=== PATIENT | male | born 1980 | race Two or more races ===

== ENCOUNTER 2018-12-02 15:20 | Emergency (ER) | payer SELFPAY ==
[~2018-12-02] VITALS: Ht 160 cm; Wt 68.0 kg
[2018-12-02] MEDS ORDERED: HYDROCODONE/ACETAMINOPHEN 10/325MG TABLET PO ONE (17:00)
[2018-12-02] MEDS ORDERED: PIPERACILLIN/TAZOBACTAM 3.375GM/50ML PREMIX IV ONE (17:15)
[2018-12-02] MEDS ORDERED: PIPERACILLIN/TAZOBACTAM 3.375 G in DEXT 5% WATER 100 ML IV NR (18:00)
[2018-12-02] MEDS ORDERED: TRANEXAMIC ACID 1,000 MG/10 ML TP ONE (18:15)
[2018-12-02] MEDS ORDERED: TRANEXAMIC ACID 1,000 MG/10 ML TP NR (18:15)
[2018-12-02 19:40] VITALS: BP 122/80
== END 2018-12-02 19:44 | disposition home or self-care (01) ==
LOC: ER 15:20
DX: S62.633B Displaced fracture of distal phalanx of left middle finger, initial encounter for open fracture (principal); S60.512A Abrasion of left hand, initial encounter; Z89.022 Acquired absence of left finger(s); W19.XXXA Unspecified fall, initial encounter; Y93.89 Activity, other specified; Y92.89 Other specified places as the place of occurrence of the external cause; Y99.8 Other external cause status
CPT/HCPCS: 29130; 73130; 96365; 99283; J2543; J7060; Z7610